=== PATIENT | female | born 1950 | race Hispanic/Latino ===

== ENCOUNTER 2022-06-15 05:31 | Observation (INO) | payer MEDICARE ==
[~2022-06-15] VITALS: Ht 152.4 cm; Wt 53.1 kg
[~2022-06-15 05:31] MED LIST: LIPITOR10 MG PO; MELOXICAM7.5 MG PO; ZESTRIL10 MG PO
[2022-06-15] MEDS ORDERED: LACTATED RINGER'S 1,000 ML ONE (05:49)
[2022-06-15] MEDS ORDERED: CELECOXIB 200 MG CAP ONE (05:49)
[2022-06-15] MEDS ORDERED: DEXAMETHASONE SOD PHOS 10 MG/1 ML VIAL ONE (05:50)
[2022-06-15] MEDS ORDERED: CEFAZOLIN SODIUM 2 GM ONE (05:50)
[2022-06-15] MEDS ORDERED: GABAPENTIN 300 MG CAP ONE (05:50)
[2022-06-15] MEDS ORDERED: TRANEXAMIC ACID 20 ML ONE (06:48)
[2022-06-15] MEDS ORDERED: Vancomycin IV 1,000 MG ONE (06:49)
[2022-06-15] MEDS ORDERED: SODIUM CHLORIDE 0.9% 500ML 500 ML ONE (06:49)
[2022-06-15] MEDS ORDERED: ACETAMINOPHEN 1000 MG/100 ML 100 ML IV ONE (07:00)
[2022-06-15] MEDS ORDERED: ROPIVACAINE 246.25 MG, EPINEPHRINE HCL 1:1000 1ML 0.5 MG, CLONIDINE HCL 0.08 MG, KETORO... INJ ONE ×5 (08:00)
[2022-06-15] MEDS ORDERED: DOCUSATE SODIUM 100 MG CAP PO PRN (08:45)
[2022-06-15] MEDS ORDERED: HYDROCODONE/APAP 7.5MG-325MG 1 EA TAB PO PRN (08:45)
[2022-06-15] MEDS ORDERED: KETOROLAC TROMETHAMINE 30 MG/ML VIAL IV PRN (08:45)
[2022-06-15] MEDS ORDERED: DIPHENHYDRAMINE HCL INJ 50 MG/ML VIAL IV PRN (08:45)
[2022-06-15] MEDS ORDERED: ONDANSETRON HCL INJ 2MG/ML 2ML 2 MG/ML VIAL IV PRN (08:45)
[2022-06-15] MEDS ORDERED: SODIUM CHLORIDE 0.9% 1000ML 1,000 ML IV SCH (08:45)
[2022-06-15] MEDS ORDERED: HYDROCODONE/APAP 5MG-325MG TAB PO PRN (08:45)
[2022-06-15] MEDS: CELECOXIB 100 MG CAP PO SCH ×2 (09:00→16:48)
[2022-06-15] MEDS: ASPIRIN 325 MG TAB PO SCH ×2 (09:00→16:48)
[2022-06-15 12:28] VITALS: BP 132/67
[2022-06-15 12:42] VITALS: BP 132/67
[2022-06-15] MEDS ORDERED: SEVOFLURANE INHAL SOLN 250 ML PEN BTL ONE (12:58)
[2022-06-15] MEDS ORDERED: POVIDONE IODINE 0.05% 0.05 % ML PO ONE (12:58)
[2022-06-15] MEDS ORDERED: ONDANSETRON HCL INJ 2MG/ML 2ML 2 MG/ML VIAL ONE (12:58)
[2022-06-15] MEDS ORDERED: PROPOFOL IV EMULSION 10 MG/ML 20 ML VIAL ONE (12:58)
[2022-06-15] MEDS ORDERED: DEXAMETHASONE SOD PHOS INJ 4 MG/ML SDV ONE (12:58)
[2022-06-15] MEDS ORDERED: LIDOCAINE HCL 2% LOCAL INJ 5 ML SDV VIAL INJ ONE (12:58)
[2022-06-15] MEDS ORDERED: EPINEPHRINE HCL 1:1000 1ML 1 MG/ML AMP ONE (13:09)
[2022-06-15] MEDS ORDERED: BUPIVACAINE 0.25% 30ML SDV ONE (13:09)
[2022-06-15] MEDS ORDERED: MIDAZOLAM HCL 2 MG/2 ML VIAL ONE (13:26)
[2022-06-15] MEDS ORDERED: FENTANYL CITRATE/PF 100MCG/2 ML INJ ONE (13:26)
[2022-06-15] MEDS ORDERED: ACETAMINOPHEN 1000 MG/100 ML IV PRN (14:00)
[2022-06-15] MEDS ORDERED: SODIUM CHLORIDE 0.9% 250ML 250 ML ONE (14:44)
[2022-06-15 16:21] VITALS: BP 103/54
[2022-06-15] MEDS ORDERED: ASPIRIN81 MG PO (17:16)
== END 2022-06-15 18:30 | disposition home or self-care (01) ==
LOC: OR 05:31 → PACU V 08:45 → MED/SURG3 10:40
PROVIDERS: ADMIT Specialist; ATTEND Specialist
DX: M17.11 Unilateral primary osteoarthritis, right knee (principal); I10 Essential (primary) hypertension; E78.00 Pure hypercholesterolemia, unspecified
CPT/HCPCS: 0223U; 27447; 36415; 71046; 73560; 86850; 86900; 86920; 94799; 97116 ×2; 97161; 97530; C1713; G0378; J0131; J0171; J0690; J1100 ×2; J1885; J2001; J2250; J2405; J2704; J2795; J3010; J3370; J7040; J7050; J7121

== ENCOUNTER → 2023-10-28 | Outpatient (REF) | payer MEDICARE ==
[~2023-10-28] MED LIST changes: +ASPIRIN81 MG PO
== END ==
LOC: NM 07:50
PROVIDERS: ATTEND Specialist
DX: Z96.651 Presence of right artificial knee joint (principal); M25.561 Pain in right knee
CPT/HCPCS: 78315; A9503

== ENCOUNTER 2023-11-22 07:20 | Observation (INO) | payer MEDICARE ==
[2023-11-22] VITALS (7 sets, daily range): BP systolic 91–123; BP diastolic 42–78; PULSE 61–73; RESP 16–19; TEMP 97.4–98.6; O2SAT 93–99
[~2023-11-22] VITALS: Ht 152.4 cm; Wt 52.2 kg
[~2023-11-22 07:20] MED LIST changes: +CRESTOR40 MG PO; +FARXIGA5 MG PO; +PLAQUENIL200 MG PO; +PREDNISONE5 MG PO
[2023-11-22] MEDS: GABAPENTIN 300 MG CAP ONE (08:22)
[2023-11-22] MEDS: CELECOXIB 200 MG CAP ONE (08:22)
[2023-11-22] MEDS: SODIUM CHLORIDE 0.9% 250ML 250 ML ONE (08:25)
[2023-11-22] MEDS: Vancomycin IV 1 GM VIAL ONE (08:25)
[2023-11-22] MEDS: LACTATED RINGER'S 1,000 ML ONE (08:26)
[2023-11-22] MEDS: DEXAMETHASONE SOD PHOS 10 MG/1 ML VIAL ONE (09:00)
[2023-11-22] MEDS ORDERED: Vancomycin IV 500 MG ONE (09:40)
[2023-11-22] MEDS ORDERED: SODIUM CHLORIDE 0.9% 500ML 500 ML ONE (09:40)
[2023-11-22] MEDS ORDERED: TRANEXAMIC ACID 20 ML ONE (09:40)
[2023-11-22] MEDS ORDERED: SUGAMMADEX SODIUM 200 MG/2 ML VIAL IV ONE (10:56)
[2023-11-22] MEDS ORDERED: ONDANSETRON HCL INJ 2MG/ML 2ML 2 MG/ML VIAL IV PRN (11:45)
[2023-11-22] MEDS ORDERED: DIPHENHYDRAMINE HCL INJ 50 MG/ML VIAL IV PRN (11:45)
[2023-11-22] MEDS ORDERED: DOCUSATE SODIUM 100 MG CAP PO PRN (11:45)
[2023-11-22] MEDS ORDERED: ROCURONIUM BROMIDE 10 MG/ML 5ML VIAL IV ONE (12:11)
[2023-11-22] MEDS ORDERED: ACETAMINOPHEN 1000 MG/100 ML IV ONE (12:11)
[2023-11-22] MEDS ORDERED: TRANEXAMIC ACID 1,000 MG/10 ML ML ONE (12:11)
[2023-11-22] MEDS ORDERED: ONDANSETRON HCL INJ 2MG/ML 2ML 2 MG/ML VIAL ONE (12:11)
[2023-11-22] MEDS ORDERED: METOCLOPRAMIDE HCL 10 MG/2ML VIAL ONE (12:11)
[2023-11-22] MEDS ORDERED: LIDOCAINE HCL 2% LOCAL INJ 5 ML SDV VIAL INJ ONE (12:11)
[2023-11-22] MEDS ORDERED: PROPOFOL IV EMULSION 10 MG/ML 20 ML VIAL ONE (12:11)
[2023-11-22] MEDS ORDERED: NEOSTIGMINE 1 MG/ML 10ML VIAL ONE (12:11)
[2023-11-22] MEDS ORDERED: SEVOFLURANE INHAL SOLN 250 ML PEN BTL ONE (12:11)
[2023-11-22] MEDS ORDERED: GLYCOPYRROLATE INJ 0.2 MG/ML VIAL ONE (12:11)
[2023-11-22] MEDS: FENTANYL CITRATE/PF 100MCG/2 ML INJ ONE (12:20)
[2023-11-22] MEDS ORDERED: FENTANYL CITRATE/PF 100MCG/2 ML INJ ONE (12:56)
[2023-11-22] MEDS ORDERED: MIDAZOLAM HCL 2 MG/2 ML VIAL ONE (12:56)
[2023-11-22] MEDS: ROPIVACAINE 246.25 MG, EPINEPHRINE HCL 1:1000 1ML 0.5 MG, CLONIDINE HCL 0.08 MG, KETORO... INJ ONE (13:32)
[2023-11-22] MEDS: SODIUM CHLORIDE 0.9% 1000ML 1,000 ML IV SCH (13:36)
[2023-11-22] MEDS: CELECOXIB 200 MG CAP PO SCH (16:53)
[2023-11-22] MEDS: ASPIRIN 325 MG TAB PO SCH (16:53)
[2023-11-22] MEDS ORDERED: ROPIVACAINE 0.5% 5 MG/ML 30 ML SDV ONE (17:56)
[2023-11-22] MEDS ORDERED: EPINEPHRINE HCL 1:1000 1ML 1 MG/ML AMP ONE (17:56)
[2023-11-22] MEDS: Vancomycin IV 1 GM in SODIUM CHLORIDE 0.9% 250ML 250 ML IV SCH (21:45)
[2023-11-22] MEDS: HYDROCODONE/APAP 5MG-325MG TAB PO PRN (21:45)
[2023-11-23] VITALS (10 sets, daily range): BP systolic 100–156; BP diastolic 50–67; PULSE 50–78; RESP 16–20; TEMP 97.9–98.7; O2SAT 93–99
[2023-11-23] MEDS: HYDROCODONE/APAP 7.5MG-325MG 1 EA TAB PO PRN (04:07)
[2023-11-23 06:01] LABS: HEMATOCRIT 37.4 % (34.2-44.1); HEMOGLOBIN 11.9 g/dL (12.0-16.0)
[2023-11-23 08:54] LABS: BASOPHILS % 0.1 % (0.0-1.0); EOSINOPHILS % 0.1 % (0.0-6.0); HEMATOCRIT 38.1 % (34.2-44.1); LYMPHOCYTES # (AUTO) 1.2 (1.0-3.2); LYMPHOCYTES % 7.7 % (18.0-39.1); MEAN CORPUSCULAR HEMOGLOBIN 32.2 pg (28-32); MEAN CORPUSCULAR HGB CONC 31.5 g/dL (31-35); MEAN CORPUSCULAR VOLUME 102.1 fL (81-99); MONOCYTES # (AUTO) 1.2 (0.2-0.8); NEUTROPHILS # (AUTO) 12.5 (2.1-6.9); NEUTROPHILS % 83.7 % (38.7-80.0); PLATELET COUNT 197 x10e3/uL (140-360); RED BLOOD COUNT 3.73 x10e6/uL (3.6-5.1); RED CELL DISTRIBUTION WIDTH 12.5 % (11.7-14.4); WHITE BLOOD COUNT 14.96 x10e3/uL (4.8-10.8)
[2023-11-23 09:11] LABS: ANION GAP 11.1 mmol/L (8-16); CALCIUM 8.4 mg/dL (8.4-10.2); CREATININE, SERUM 0.72 mg/dL (0.57-1.11); POTASSIUM 4.1 mmol/L (3.5-5.1)
[2023-11-23] MEDS ORDERED: ONDANSETRON HCL 4 MG ORAL DISINTEGRATING TAB PO PRN (09:15)
[2023-11-23] MEDS ORDERED: DEXTROSE 50% SYRINGE 50 ML IV PRN (12:30)
[2023-11-23] MEDS: INSULIN LISPRO 100 UNIT/1 ML 3ML VIAL SQ SCH (13:00)
[2023-11-23] MEDS: HYDROXYCHLOROQUINE SULFATE 200 MG TAB PO SCH (16:35)
[2023-11-23] MEDS: LISINOPRIL 10 MG TAB PO SCH (21:45)
[2023-11-23] MEDS: ACETAMINOPHEN 1000 MG/100 ML IV PRN (21:52)
[2023-11-24] VITALS (8 sets, daily range): BP systolic 122–146; BP diastolic 59–71; PULSE 54–72; RESP 16–20; TEMP 97.9–98.6; O2SAT 94–99
[2023-11-24 07:02] LABS: HEMATOCRIT 35.5 % (34.2-44.1); HEMOGLOBIN 11.1 g/dL (12.0-16.0)
== END 2023-11-24 15:52 | disposition home health service (06) ==
LOC: OR 07:20 → PACU V 12:20 → MED/SURG3 12:50
PROVIDERS: ADMIT Specialist; ATTEND Specialist
DX: T84.032A Mechanical loosening of internal right knee prosthetic joint, initial encounter (principal); I10 Essential (primary) hypertension; E78.5 Hyperlipidemia, unspecified; M19.90 Unspecified osteoarthritis, unspecified site; E11.9 Type 2 diabetes mellitus without complications; N20.0 Calculus of kidney; Y83.8 Other surgical procedures as the cause of abnormal reaction of the patient, or of later complication, without mention of misadventure at the time of the procedure; Z88.6 Allergy status to analgesic agent; Z88.0 Allergy status to penicillin; Z88.8 Allergy status to other drugs, medicaments and biological substances; Z79.84 Long term (current) use of oral hypoglycemic drugs; Z79.82 Long term (current) use of aspirin; Z79.899 Other long term (current) drug therapy
CPT/HCPCS: 27487; 36415 ×3; 73560; 80048; 82948 ×3; 85014 ×2; 85018 ×2; 85025; 86850; 86900; 94799 ×3; 97110; 97116 ×2; 97161; 97530; C1713 ×3; C1776 ×2; G0378 ×3; J0131 ×3; J0171; J1100; J1885; J2001; J2250; J2405; J2704; J2710; J2765; J2795; J3010; J3370 ×3; J7030; J7040; J7050 ×2; J7121